=== PATIENT | male | born 1945 | race Caucasian/White ===

== ENCOUNTER → 2019-09-12 13:37 | Outpatient (CLI) | payer OTHER, SELFPAY ==
--- NOTE | 2019-09-12 | DI.RAD.S_ITS ---
PROCEDURE: XR HIP W PEL IF DONE LT 2V INDICATIONS: left hip pain TECHNIQUE: AP view of the pelvis with frog-leg lateral view of the left hip were obtained. COMPARISON: [facility], CR, XR LUMBAR SPINE 2-3V, 09/12/2019, 13:53. FINDINGS: Bones: No acute fracture or dislocation. There are mild degenerative changes of the lumbar spine. There are minimal degenerative changes of the right hip joint as evidenced by periarticular sclerosis. There are moderate to severe degenerative changes of the left hip joint as evidenced by periarticular sclerosis, subchondral cystic change, and [id number] articulation. Soft tissues: No suspicious soft tissue calcifications or masses. 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 Dictated by: Claude Mendez M.D. on 09/12/2019 at 17:08 Approved by: Claude Mendez M.D. on 09/12/2019 at 17:11
--- NOTE | 2019-09-12 | DI.RAD.S_ITS ---
PROCEDURE: XR LUMBAR SPINE 2-3V INDICATIONS: low back pain TECHNIQUE: 3 views of the lumbar spine were acquired. COMPARISON: None. FINDINGS: Bones: 5 [id number] vertebrae are present. There is preservation of the normal lumbar lordosis. There is mild irregularity and sclerosis of the superior endplate of the L2 vertebral body. There are mild degenerative changes of the lumbar spine. There are moderate to severe degenerative changes of the left hip joint as evidenced by [id number] articulation no periarticular sclerosis, and osteophyte formation. Soft tissues: Overlying bowel gas pattern is nonobstructive. No suspicious soft tissue calcifications. IMPRESSION: 1. Mild irregularity and sclerosis of the superior endplate of L2, which may be secondary to degenerative change but correlation with point tenderness is recommended to exclude acute fracture or osteomyelitis. 2. 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 Dictated by: Claude Mendez M.D. on 09/12/2019 at 17:02 Approved by: Claude Mendez M.D. on 09/12/2019 at 17:08
== END ==
PROVIDERS: Visit Provider Chiropractor
DX: M54.5 Low back pain (principal); M47.816 Spondylosis without myelopathy or radiculopathy, lumbar region; M25.552 Pain in left hip; M25.752 Osteophyte, left hip
CPT/HCPCS: 72100; 73502

== ENCOUNTER → 2019-09-20 11:59 | Outpatient (CLI) | payer OTHER, SELFPAY ==
--- NOTE | 2019-09-20 | DI.MRI.S_ITS ---
PROCEDURE: MR HIP LT WO CON INDICATIONS: Strain of muscle, fascia and tendon of LEFT hip TECHNIQUE: Noncontrast coronal T1 spin echo and STIR through the bony pelvis. Coronal and axial T2 fast spin echo with fat saturation, sagittal T1 spin echo, and oblique axial T2 fast spin echo with fat saturation through the hip. COMPARISON: [facility], CR, XR HIP W PEL IF DONE LT 2V, 09/12/2019, 13:53. FINDINGS: Image quality: Excellent. Bones and joints: Bone marrow of the pelvic ring and proximal femur on the right shows normal signal throughout. However, on the left there is abnormal prominent edema that appears traumatic in origin in this clinical circumstance, involving the acetabulum and also the proximal left femur through the femoral head, neck and extending through the intertrochanteric region. This is associated with vertically oriented bands of low signal on T1 imaging, both through the femoral neck and extending inferiorly through the intertrochanteric left hip. This is most convincingly demonstrated on the coronal T1 imaging series 3, with a vertical striations indicating high likelihood of fracture planes from image [id number]. Nondisplaced fractures may be interspersed within the acetabular roof, and but definite fractures in that area are not found despite the prominence of marrow space edema present. No avascular necrosis of the femoral heads. Note is made of what may be a coincidental enchondroma seen at the junction of the middle and lateral thirds of the intertrochanteric line, rounded and measuring up to 1.6 x 1.7 cm in maximal axial dimension of an approximately 2.7 cm craniocaudad. The visualized lower lumbar spine appears normally aligned. Tendons and ligaments: The gluteus medius and minimus tendons appear intact, without associated muscle atrophy. The nearby proximal iliotibial band also appears intact. The iliopsoas tendon appears intact, without adjacent bursal fluid collections or evidence for impingement syndrome. The origin of the hamstring tendon is intact at the ischial tuberosity, as well as the associated sacrotuberous ligament. The straight and reflected heads of the rectus femoris muscle origin appear intact, as well as the conjoint tendon. The ligamentum teres appears intact where visualized. Labrum and cartilage: The acetabular labrum appears intact in the absence of intra-articular contrast. Cartilage surface of the femoral head appears of normal thickness. The alpha angle of the femur is within normal limits at less than 55 degrees. note is made of a moderate left hip joint effusion with synovial protrusion extending anteriorly lateral to the common femoral artery and vein, measuring up to 2.4 x 3.5 cm. Soft tissues: Visualized muscles demonstrate normal bulk but several demonstrate abnormal elevated fluid signal indicating strain or partial tear in the setting of post traumatic injury along the borders of the left hip joint. Quadratus femoris muscle demonstrates no internal edema to suggest ischiofemoral impingement. The proximal sciatic neurovascular bundle appears normal adjacent to the hamstring tendons. No free pelvic fluid. Bladder wall thickness is normal. Genitourinary structures and bowel loops appear normal where visualized. IMPRESSION: Significant traumatic injury has occurred to the left hip involving both the osseous and soft tissue structures. Prominent marrow edema is present as noted over the acetabular roof and involving the femoral head, neck and intertrochanteric regions. The vertically oriented striations of reduced fat signal on T1 imaging indicate nondisplaced vertically oriented fractures through the intertrochanteric area by appearance. Traumatic joint injury is the presumed cause for moderate size joint effusion and moderately large anterior synovial protrusion noted above. Traumatic injury to the substance of musculature abutting the proximal left femur is present as indicated by elevated internal fluid signal, but without disruption or retraction. 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 This is better seen by MR scanning than by recent plain film imaging from 09/12/19. Note: This information was called to the office of the [facility] health care provider. The patient was requested to be seen at the emergency room for anticipated orthopedic surgical consultation. Dictated by: Kenrick Willson M.D. on 09/20/2019 at 13:03 Approved by: Kenrick Willson M.D. on 09/20/2019 at 13:14
== END ==
PROVIDERS: Visit Provider Chiropractor
DX: S76.011A Strain of muscle, fascia and tendon of right hip, initial encounter (principal); X58.XXXA Exposure to other specified factors, initial encounter
CPT/HCPCS: 73721

== ENCOUNTER → 2020-08-20 14:20 | Outpatient (CLI) | payer OTHER, SELFPAY ==
--- NOTE | 2020-08-20 14:22 | DI.MRI.S_ITS ---
PROCEDURE: MR HIP LT WO CON INDICATIONS: Left hip pain TECHNIQUE: Noncontrast coronal T1 spin echo and STIR through the bony pelvis. Coronal and axial T2 fast spin echo with fat saturation, sagittal T1 spin echo, and oblique axial T2 fast spin echo with fat saturation through the hip. COMPARISON: [facility], MR, MR HIP LT WO CON, 09/20/2019, 12:10. FINDINGS: Image quality: Excellent. Bones and joints: No fracture identified. Sacroiliac joints are unremarkable in signal intensity. There is lower lumbar spondylosis and facet arthropathy. Large hip effusion is seen. There is left hip joint degeneration. Subchondral sclerosis and spurring is present. There is slightly outer round appearance of the femoral head suggestive of low-grade articular surface collapse. There is associated reactive marrow edema which appears less conspicuous since the prior study. T2 hyperintense stippled lesion seen within the intertrochanteric left femur. This is unchanged and may represent low grade chondroid lesions , such as enchondroma, although technically nonspecific. This measures approximately 1.9 x 1.4 cm on coronal images. Tendons and ligaments: The gluteus medius and minimus tendons appear intact, without associated muscle atrophy. Proximal iliotibial band intact. Iliopsoas tendon intact. Hamstring origin tendinopathy and partial tear noted. The straight and reflected heads of the rectus femoris muscle origin appear intact Ligamentum teres appears intact where visualized. Labrum: Labrum appears intact in the absence of intra-articular contrast. The alpha angle of the femur is within normal limits at less than 55 degrees. Soft tissues: Mild edema involving the adductor compartment muscles. Quadratus femoris muscle normal. Proximal sciatic neurovascular bundle appears normal adjacent to the hamstring tendons. No free pelvic fluid. Bladder normal. Genitourinary structures and bowel loops appear normal where visualized. IMPRESSION: Severe left hip joint degeneration, with [id number] appearance and marked subchondral signal changes. Slight collapse of the articular surface suggests underlying AVN which has progressed since the prior study. Please correlate clinically. Hamstring origin tendinopathy and partial tear. This appears unchanged Large left hip joint effusion. This may be slightly increased. Mild strain of the left hip adductor muscles. Possible low-grade chondroid lesion involving the intertrochanteric left femur, unchanged. Dictated by: Darrell Howell M.D. on 08/20/2020 at 16:21 Approved by: Darrell Howell M.D. on 08/20/2020 at 16:34
== END ==
PROVIDERS: PCP Family Medicine; Referring Provider Family Medicine; Visit Provider Family Medicine
DX: M25.552 Pain in left hip (principal); M16.12 Unilateral primary osteoarthritis, left hip; S76.812A Strain of other specified muscles, fascia and tendons at thigh level, left thigh, initial encounter; M25.452 Effusion, left hip; G89.29 Other chronic pain
CPT/HCPCS: 73721